=== PATIENT | male | born 1970 | race Two or more races ===

== ENCOUNTER → 2017-01-30 | Outpatient (CLI) | payer MEDICAID ==
--- NOTE | 2017-01-30 15:25 | RADIOLOGY REPORT (SQ) ---
EXAM DESCRIPTION: CT FACIAL AREA WITHOUT COMPLETED DATE/TIME: 01/30/2017 2:23 pm REASON FOR STUDY: FRONTAL SINUS PAIN J34.89 OTHER SPECIFIED DISORDERS OF NOSE AND NASAL SINUSES COMPARISON: None. TECHNIQUE: Noncontrasted images through the facial bones and orbits windowed for bone and soft tissu e. Additional coronal and sagittal reconstructed images reviewed. All images stored on PACS. All CT scanners at this facility use dose modulation, iterative reconstruction, and/or weight based d osing when appropriate to reduce radiation dose to as low as reasonably achievable (ALARA). [facility]: Dose Right [facility]: CareDose [facility]: Dose Right [facility]: Teradose 4D [facility]: Telelogos RADIATION DOSE: 44.4 mGy. LIMITATIONS: None. FINDINGS: FACIAL BONES: No acute fracture. ORBITS: The right bony orbit is unremarkable. On the left side, there is medial bowing of the medial orbital wall best shown on axial image 27 and coronal image 23. This is likely due to remote prior medial orbital wall fracture. Orbital soft tissues are unremarkable. Globes, optic nerves, intra and extraconal fat, extraocular m uscles are all unremarkable. PARANASAL SINUSES: Clear. No significant mucosal thickening, mass or fluid. No nasal polyps. Maxill arlene sinus outlets are patent. SOFT TISSUES: No mass or edema. INFERIOR BRAIN: Limited view. No acute findings. OTHER: No other significant finding. IMPRESSION: NO ACUTE FINDINGS. TECHNICAL DOCUMENTATION: JOB ID: [id number] Quality ID # [id number]: Final reports with documentation of one or more dose reduction techniques (e.g., Au tomated exposure control, adjustment of the mA and/or kV according to patient size, use of iterative reconstruction technique) 2010 [employer]- All Rights Reserved
== END ==
LOC: RAD 13:46
PROVIDERS: ATTEND Nurse Practitioner Family
DX: J34.89 Other specified disorders of nose and nasal sinuses (principal)
CPT/HCPCS: 70486